=== PATIENT | male | born 1940 | race Caucasian/White ===

== ENCOUNTER 2017-05-12 06:37 | Day surgery (SDC) | payer MEDICARE, BC ==
[2017-05-12] MEDS ORDERED: FENTANYL 100MCG/2ML SOL ONE (07:25)
[2017-05-12] MEDS ORDERED: LIDOCAINE HCL 1% MPF SOL ONE (07:25)
[2017-05-12] MEDS ORDERED: PROPOFOL 500 MG/50 ML EMU IV ONE (07:25)
[2017-05-12] MEDS ORDERED: CEFAZOLIN SODIUM 1 GM PDS ONE (07:39)
[2017-05-12] MEDS: BUPIVACAINE/EPI 0.5% 10 ML SOL INFIL ONE ×2 (07:55→08:19)
[2017-05-12 08:35] VITALS: TEMP 97
[2017-05-12 08:59] VITALS: BP 121/69; PULSE 79; RESP 20; O2SAT 93
== END 2017-05-12 09:30 | disposition home or self-care (01) | DRG 395 ==
LOC: SURG 06:37
PROVIDERS: ATTEND Surgery
DX: K40.90 Unilateral inguinal hernia, without obstruction or gangrene, not specified as recurrent (principal)
CPT/HCPCS: J0690; J3010; A6402; C1781; J2001; J2704

== ENCOUNTER 2017-09-30 13:41 | Outpatient (CLI) | payer MEDICARE, BC ==
[2017-05-12 08:59] VITALS: O2SAT 93
== END 2017-09-30 13:42 | disposition home or self-care (01) | DRG 556 ==
LOC: CONVCARE 13:41
PROVIDERS: ATTEND Orthopaedic Surgery
DX: M25.552 Pain in left hip (principal); M16.12 Unilateral primary osteoarthritis, left hip
CPT/HCPCS: 73501

== ENCOUNTER 2017-12-23 09:20 | Inpatient (IN) | payer MEDICARE, BC ==
[~2017-12-23 09:20] MED LIST: DEXAMETHASONE 20 MG/5 ML (4 MG/ML SOL) ONE; LIDOCAINE HCL 1% MPF SOL ONE; METOCLOPRAMIDE HYDROCHLORIDE 5 MG/ML SOL ONE; MIDAZOLAM 2 MG/2 ML SOL ONE; MORPHINE SULFATE 0.5 MG/ML SOL ONE; PROPOFOL 500 MG/50 ML EMU IV ONE
[2017-12-23] MEDS ORDERED: LACTATED RINGERS 1,000 ML IV ONE (10:00)
[2017-12-23] MEDS ORDERED: SCOPOLAMINE 1.5MG PATCH TD SCH (10:00)
[2017-12-23] MEDS ORDERED: TRANEXAMIC ACID 100 MG/ML SOL ONE ×2 (10:52→12:31)
[2017-12-23] MEDS ORDERED: SODIUM CHLORIDE 20 ML 40 ML ONE (10:52)
[2017-12-23] MEDS ORDERED: BUPIVACAINE LIPOSOME 20 ML SUS ONE (10:53)
[2017-12-23] MEDS ORDERED: LACTATED RINGERS 1,000 ML IV SCH (11:00)
[2017-12-23] MEDS ORDERED: FENTANYL 100MCG/2ML SOL ONE (11:21)
[2017-12-23] MEDS ORDERED: CEFAZOLIN (PREMIX) 1 GM SOL IV ONE (11:33)
[2017-12-23] MEDS ORDERED: PROPOFOL 10 MG/ML EMU IV ONE (13:13)
[2017-12-23] MEDS: VANCOMYCIN HYDROCHLORIDE 500 MG PDS IV ONE ×2 (13:25→13:31)
[2017-12-23] MEDS ORDERED: TEMAZEPAM 15MG 15 MG CAP PO PRN (13:35)
[2017-12-23] MEDS ORDERED: DIPHENHYDRAMINE 25 MG CAP PO PRN (13:35)
[2017-12-23] MEDS ORDERED: ONDANSETRON HCL 4 MG/2 ML SOL IV PRN (13:35)
[2017-12-23] MEDS ORDERED: BISACODYL 10 MG SUP PR PRN (13:35)
[2017-12-23] MEDS ORDERED: HYDROMORPHONE HCL 2 MG/ML SOL IV PRN (13:35)
[2017-12-23] MEDS ORDERED: ONDANSETRON 4 MG ODT BU PRN (13:35)
[2017-12-23] MEDS ORDERED: MORPHINE SULFATE 10 MG/ML SOL IM PRN (13:35)
[2017-12-23] MEDS ORDERED: FLEET ENEMA PR PRN (13:35)
[2017-12-23] MEDS ORDERED: MAGNESIUM HYDROXIDE 30 ML SUS PO PRN (13:35)
[2017-12-23] MEDS ORDERED: ALUMINUM/MAGNESIUM 30 ML SUS PO PRN (13:35)
[2017-12-23] MEDS ORDERED: DIAZEPAM 5 MG TAB PO PRN (13:35)
[2017-12-23] MEDS: SODIUM CHLORIDE 0.9% 1000ML 1,000 ML IV SCH (15:15)
[2017-12-23] MEDS ORDERED: ALBUTEROL HFA 60 PUFF/INHALER INH PRN (15:46)
[2017-12-23] MEDS: SODIUM CHLORIDE 0.9% FLUSH 10 ML SOL IV SCH ×2 (17:18→21:28)
[2017-12-23] MEDS: ACETAMINOPHEN 500 MG 500 MG TAB PO SCH ×2 (17:31→21:08)
[2017-12-23] MEDS: CEFAZOLIN (PREMIX) 1 GM 1 GM/50 ML SOL IV SCH (19:58)
[2017-12-23] MEDS: SENNOSIDES A AND B 8.6 MG TAB PO SCH (21:07)
[2017-12-23] MEDS: CARBAMAZEPINE 600 MG PO SCH (21:27)
[2017-12-23] MEDS: SODIUM CHLORIDE 0.9% 500 ML 500 ML IV PRN (23:57)
[2017-12-24] MEDS: SODIUM CHLORIDE 0.9% 1000ML 1,000 ML IV SCH ×2 (01:25→11:42)
[2017-12-24] MEDS: CEFAZOLIN (PREMIX) 1 GM 1 GM/50 ML SOL IV SCH (03:08)
[2017-12-24] MEDS: SODIUM CHLORIDE 0.9% FLUSH 10 ML SOL IV SCH ×2 (05:39→13:29)
[2017-12-24] MEDS: OXYCODONE HYDROCHLORIDE 5 MG TAB PO PRN ×5 (05:50→20:28)
[2017-12-24 07:12] LABS: HEMOGLOBIN 11.1 gm/dl (13.5-17.7); MEAN CORPUSCULAR HEMOGLOBIN 32.1 pg (27.0-32.0); MEAN CORPUSCULAR HGB CONC 35.2 gm/dl (32.0-36.0)
[2017-12-24] MEDS ORDERED: BUDESONIDE 0.25 MG/2 ML SUS INH SCH (09:00)
[2017-12-24] MEDS: ACETAMINOPHEN 500 MG 500 MG TAB PO SCH ×4 (09:12→20:27)
[2017-12-24] MEDS: RIVAROXABAN 10 MG TAB PO SCH (09:13)
[2017-12-24] MEDS: CARBAMAZEPINE 600 MG PO SCH ×2 (09:14→20:26)
[2017-12-24] MEDS: [UNRECOGNIZED DRUG - OTHER] INH SCH (10:38)
[2017-12-24] MEDS: SODIUM CHLORIDE 0.9% 500 ML 500 ML IV PRN (14:10)
[2017-12-24] MEDS: SENNOSIDES A AND B 8.6 MG TAB PO SCH (20:27)
[2017-12-25] MEDS: SODIUM CHLORIDE 0.9% FLUSH 10 ML SOL IV SCH ×4 (03:19→20:50)
[2017-12-25 07:13] LABS: HEMOGLOBIN 10.1 gm/dl (13.5-17.7); MEAN CORPUSCULAR HEMOGLOBIN 31.2 pg (27.0-32.0); MEAN CORPUSCULAR HGB CONC 34.5 gm/dl (32.0-36.0)
[2017-12-25] MEDS: CARBAMAZEPINE 600 MG PO SCH (08:52)
[2017-12-25] MEDS: RIVAROXABAN 10 MG TAB PO SCH (08:52)
[2017-12-25] MEDS: ACETAMINOPHEN 500 MG 500 MG TAB PO SCH ×4 (08:52→20:50)
[2017-12-25] MEDS: [UNRECOGNIZED DRUG - OTHER] INH SCH (08:53)
[2017-12-25] MEDS ORDERED: BUDESONIDE 0.5 MG/2 ML AMPUL.NEB INH SCH (09:00)
[2017-12-25] MEDS: BUDESONIDE 0.5 MG/2 ML AMPUL.NEB INH SCH (20:50)
[2017-12-25] MEDS: SENNOSIDES A AND B 8.6 MG TAB PO SCH (20:51)
[2017-12-25] MEDS: CARBAMAZEPINE 400 MG PO SCH (20:51)
[2017-12-26] MEDS: SODIUM CHLORIDE 0.9% FLUSH 10 ML SOL IV SCH ×3 (06:14→21:04)
[2017-12-26 07:49] LABS: HEMOGLOBIN 9.8 gm/dl (13.5-17.7); MEAN CORPUSCULAR HEMOGLOBIN 32.3 pg (27.0-32.0); MEAN CORPUSCULAR HGB CONC 35.3 gm/dl (32.0-36.0)
[2017-12-26] MEDS: ACETAMINOPHEN 500 MG 500 MG TAB PO SCH ×4 (08:47→21:04)
[2017-12-26] MEDS: [UNRECOGNIZED DRUG - OTHER] INH SCH (08:48)
[2017-12-26] MEDS: CARBAMAZEPINE 400 MG PO SCH ×2 (08:48→21:04)
[2017-12-26] MEDS: RIVAROXABAN 10 MG TAB PO SCH (08:50)
[2017-12-26 17:34] VITALS: RESP 18
[2017-12-26] MEDS: SENNOSIDES A AND B 8.6 MG TAB PO SCH (21:04)
[2017-12-26] MEDS: BUDESONIDE 0.5 MG/2 ML AMPUL.NEB INH SCH (21:06)
[2017-12-26 22:56] VITALS: O2SAT 97
[2017-12-27 08:55] VITALS: BP 121/66; PULSE 102; TEMP 98.4
[2017-12-27] MEDS: [UNRECOGNIZED DRUG - OTHER] INH SCH (09:24)
[2017-12-27] MEDS: CARBAMAZEPINE 400 MG PO SCH (09:25)
[2017-12-27] MEDS: ACETAMINOPHEN 500 MG 500 MG TAB PO SCH ×2 (09:25→13:20)
[2017-12-27] MEDS: RIVAROXABAN 10 MG TAB PO SCH (09:28)
[2017-12-27] MEDS ORDERED: PNEUMOC 13-VAL CONJ-DIP CRM/PF 0.5 ML SYRINGE IM ONE (12:39)
== END 2017-12-27 14:00 | disposition home or self-care (01) | DRG 470 ==
LOC: ACUTE CARE 09:20
PROVIDERS: ADMIT Orthopaedic Surgery; ATTEND Orthopaedic Surgery
PROC: F0134ZZ Motor Function Assessment of Neurological System - Whole Body (ICD-10-PCS; 2017-12-23)
PROC: F01ZBFZ Bed Mobility Assessment using Assistive, Adaptive, Supportive or Protective Equipment (ICD-10-PCS; 2017-12-23)
PROC: 0SRB04A Replacement of Left Hip Joint with Ceramic on Polyethylene Synthetic Substitute, Uncemented, Open Approach (ICD-10-PCS; principal; 2017-12-23 12:00)
PROC: F02Z1FZ Dressing Assessment using Assistive, Adaptive, Supportive or Protective Equipment (ICD-10-PCS; 2017-12-24)
PROC: F02Z3FZ Grooming/Personal Hygiene Assessment using Assistive, Adaptive, Supportive or Protective Equipment (ICD-10-PCS; 2017-12-24)
PROC: F02Z2ZZ Feeding/Eating Assessment (ICD-10-PCS; 2017-12-24)
DX: M16.12 Unilateral primary osteoarthritis, left hip (principal); Z96.642 Presence of left artificial hip joint; G50.0 Trigeminal neuralgia; J45.20 Mild intermittent asthma, uncomplicated
CPT/HCPCS: 36415; 73501; 73502; 85027; 90670; 94150; J0690; J1100; J2250; J2274; J2405; J2765; J3010; J3370; A4450; A6232; A6402; A9270-GY; G0008; J2001; J2704; J3490; L1830; Q3014

== ENCOUNTER 2018-02-10 08:35 | Outpatient (CLI) | payer MEDICARE, BC | END 2018-02-10 08:36 | disposition home or self-care (01) | DRG 561 | LOC: CONVCARE 08:35 | PROVIDERS: ATTEND Orthopaedic Surgery | DX: Z47.1 Aftercare following joint replacement surgery (principal); Z96.642 Presence of left artificial hip joint | CPT/HCPCS: 73501 ==